=== PATIENT | female | born 1955 | race Caucasian/White ===

== ENCOUNTER 2022-01-12 20:02 | Emergency (ER) | payer MEDICARE, OTHER, SELFPAY ==
--- NOTE | ~2022-01-12 | US_ITS ---
EXAMINATION: US VENOUS ULTRASOUND WITH DOPPLER LOWER EXTREMITY, LEFT CLINICAL INFORMATION: Swelling. COMPARISON: None TECHNIQUE: Ultrasound of the deep veins is performed from the hip to the calf with compression sonography and color and pulse Doppler assessment. Spectral analysis with color-flow imaging is performed. FINDINGS: There is normal venous compression and respiratory variation and augmented flow. The visualized common femoral vein, superficial femoral vein, profunda femoral vein, popliteal vein, and the trifurcation region shows no evidence of deep venous thrombosis. There is no significant popliteal fossa cyst. If the patient's symptoms persist, followup ultrasound in 5 days 7 days might be of value to exclude proximal propagation from a non-visualized calf vein. US/US venous duplex LE LT IMPRESSION: No DVT demonstrated in the left lower extremity.
[2022-01-12 20:28] VITALS: BP 132/55; PULSE 73; RESP 18; TEMP 36.8; O2SAT 99; BMI 22.4
--- NOTE | 2022-01-12 22:02 | ED.GENADULT ---
HPI - General Adult General Chief complaint: General Medical Stated complaint: left calf swollen Time Seen by Provider: 01/12/22 20:33 Source: patient Mode of arrival: ambulatory History of Present Illness HPI narrative: 66-year-old female with no significant past medical history presenting to the ED complaining left calf swelling times a couple days. Admits was instructed to come to ED by on-call doctor at [facility]. Denies known injury, trauma, fall, numbness, tingling, shortness of breath, chest pain Onset (ago): day(s) Related Data Allergies Allergy/AdvReac Type Severity Reaction Status Date / Time latex [LATEX] Allergy Intermediate RASH Verified 01/12/22 20:28 Penicillins [PENICILLINS] Allergy Intermediate HIVES Verified 01/12/22 20:28 Review of Systems Review of Systems: Constitutional: No Fever, No Chills ENT/Mouth: No Ear Pain, No Nasal Congestion, No sore throat Cardiovascular: No Chest Pain, No SOB Respiratory: No Cough, No Sputum, No Wheezing Gastrointestinal: No Nausea, No Vomiting, No Abdominal pain Genitourinary: No Dysuria, No Urinary Frequency, No Hematuria, No Flank Pain Musculoskeletal: No joint pain, No Myalgias, + Joint Swelling Skin: No Skin Lesions, No rash Neuro: No Weakness, No Numbness, No Paresthesias Yes all other systems are reviewed and are negative [facility] Past Medical History Attestation statement: The following information was validated with the patient. Social History Social History Advance Directives: No Advance Directives Information Provided: No Physical Exam ED Vital Signs: Vital Signs - 24 hr 01/12/22 20:28 Temperature 98.3 F Pulse Rate 73 Respiratory Rate 18 Blood Pressure 132/55 L Pulse Oximetry 99 BMI result Body Mass Index 22.4 Const General: cooperative, healthy appearing and no acute distress Orientation/consciousness: patient oriented x3 Limitations: no limitations HENMT Head: Yes normal to inspection and Yes atraumatic Ears: hearing grossly normal bilaterally General nose exam: Normal external nose present Face and sinus: Yes normal facial exam Eyes General: appearance normal, both eyes and all related structures EOM: EOMs intact bilaterally Neck Neck: Yes normal visual inspection and Yes no meningeal signs Resp Effort & Inspection: normal respiratory effort and no respiratory distress Auscultation: clear to auscultation bilaterally Cardio Rate: regular rate Heart sounds: S1 normal heart sound present and S2 normal heart sound present Skin Rashes: no rashes Wounds: no wounds Neuro General: patient oriented x3, gait normal, tone normal, moves all extremities and no meningeal signs Gait exam (Neuro): Normal gait present Extrem Other: Left lower extremity with minimal swelling. Slight ecchymosis noted to anterior tib/fib without erythema, crepitus, fluctuance or induration. Neurovascular intact distally. No calf tenderness. Course Course Course Narrative: US venous duplex LE LT IMPRESSION: No DVT demonstrated in the left lower extremity. >> results discussed with patient including worrisome signs and symptoms and strict return precautions. DEMETRIUS wrap applied for compression Procedures Orthopedic Splinting/Casting Injury #1: Side: left Lower Extremity Injury Location: lower leg Lower Extremity Immobilizer: Demetrius wrap Medical Decision Making MDM Narrative Medical decision making narrative: 66-year-old female with no significant past medical history presenting to the ED complaining left calf swelling times a couple days. On exam vital signs stable, NAD, physical exams apply. Concern for superficial thrombophlebitis versus DVT. Low concern for fracture. No evidence of infection Plan: Venous duplex ultrasound Discharge Plan Discharge Clinical Impression: Swelling of calf Patient Disposition: Home, Self-Care Additional Instructions: Your ultrasound was negative for blood clot. Please follow-up with her doctor. If symptoms persist or worsen family of shortness of breath, calf pain, or signs of infection please return to the emergency department. Ice and elevate. Take Tylenol and Motrin as needed Referrals: Danny Coto NP [Primary Care Provider] - 5 days
== END 2022-01-12 22:13 | disposition home or self-care (01) ==
PROVIDERS: Emergency Provider Emergency Medicine Emergency Medical Services; PCP Nurse Practitioner Primary Care
DX: R60.0 Localized edema (principal); M79.89 Other specified soft tissue disorders; Z79.899 Other long term (current) drug therapy
CPT/HCPCS: 29515; 93971; 99282; 99284